=== PATIENT | female | born 1970 | race Caucasian/White ===

== ENCOUNTER 2019-04-12 15:37 | Inpatient (IN) | payer MEDICAID ==
[~2019-04-12] VITALS: Ht 162.6 cm; Wt 50.8 kg
[2019-04-12] MEDS ORDERED: HUM10VIA3 SQ (15:56)
[2019-04-12] MEDS ORDERED: KETOROLAC TROMETHAMINE 30 MG INJ IVP ONE (16:00)
[2019-04-12] MEDS ORDERED: ONDANSETRON 4 MG/2 ML VIAL IV ONE (16:00)
[2019-04-12] MEDS ORDERED: IV NORMAL SALINE 1000 ML BAG IV ONE ×2 (16:00→17:30)
[2019-04-12] MEDS ORDERED: KETOROLAC TROMETHAMINE 30 MG INJ ONE (16:12)
[2019-04-12] MEDS ORDERED: ONDANSETRON 4 MG/2 ML VIAL ONE (16:12)
[2019-04-12 16:15] LABS: HEMATOCRIT 35.6 % (31.2-41.9); HEMOGLOBIN 11.3 g/dL (10.9-14.3); LYMPHOCYTES # (AUTO) 1.2 K/uL (20.0-40.0); LYMPHOCYTES % (AUTO) 36.4 % (20.5-51.5); MEAN CORPUSCULAR HEMOGLOBIN 27.6 uug (24.7-32.8); MEAN CORPUSCULAR HGB CONC 32 g/dL (32.3-35.6); MEAN CORPUSCULAR VOLUME 87.3 fL (75.5-95.3); MONOCYTES # (AUTO) 0.5 K/uL (2.0-10.0); NEUTROPHILS # (AUTO) 1.6 K/uL (1.8-8.9); NEUTROPHILS % (AUTO) 46.6 % (38.5-71.5); PLATELET COUNT (AUTO) 219 K/uL (179-408); RED BLOOD CELL COUNT(AUTO) 4.08 MIL/uL (3.63-4.92); WHITE BLOOD COUNT (AUTO) 3.4 K/uL (3.8-11.8)
[2019-04-12 16:19] LABS: CREATININE 0.6 mg/dL (0.6-1.3); POTASSIUM 3.4 mmol/L (3.5-5.1)
[2019-04-12 16:25] LABS: BILIRUBIN,DIRECT 0.2 mg/dL (0.0-0.2); BILIRUBIN,TOTAL 0.4 mg/dL (0.2-1.0); TOTAL PROTEIN, SERUM 7.7 g/dL (6.4-8.2)
[2019-04-12 16:40] LABS: EOSINOPHILS % (MANUAL) 2 % (0-8); LYMPHOCYTES % (MANUAL) 36 % (20-40); MONOCYTES % (MANUAL) 13 % (2-10); NEUTROPHILS % (MANUAL) 49 % (42-75)
[2019-04-12] MEDS ORDERED: MORPHINE SULFATE 2 MG/1 ML DISP.SYRIN IV ONE (17:30)
[2019-04-12] MEDS ORDERED: FAMOTIDINE. 20 MG/2 ML VIAL IV ONE ×2 (17:30→17:31)
[2019-04-12] MEDS ORDERED: MORPHINE SULFATE 2 MG/1 ML DISP.SYRIN ONE (17:31)
[2019-04-12] MEDS ORDERED: IV NORMAL SALINE 250 ML IV ONE (20:22)
[2019-04-12] MEDS ORDERED: HYDROCORTISONE SOD SUCCINATE 250 MG/2 ML ML ONE (20:22)
[2019-04-12] MEDS ORDERED: SWABABLE VALVE TRANSFER SET EA MC ONE (20:22)
[2019-04-12] MEDS ORDERED: IOHEXOL 300MG/ML 100 ML INFUS..BTL ONE (20:23)
[2019-04-12] MEDS ORDERED: Z GUARD REMEDY PASTE 57 GM TUBE TOP PRN (21:00)
[2019-04-12] MEDS ORDERED: FAMOTIDINE. 20 MG/2 ML VIAL IV SCH (21:00)
[2019-04-12] MEDS ORDERED: ACETAMINOPHEN 325 MG TABLET PO PRN (21:00)
[2019-04-12] MEDS ORDERED: THIAMINE HCL INJ 100 MG in IV DEXTROSE 5% 50 ML IV ONE (21:00)
[2019-04-12] MEDS ORDERED: ONDANSETRON 4 MG/2 ML VIAL IV PRN (21:00)
[2019-04-12 21:15] VITALS: BP 192/97
[2019-04-12] MEDS: SUCRALFATE 1 G TABLET PO SCH (21:53)
[2019-04-12] MEDS: IV NS 1000 ML 1,000 ML IV PRN (21:53)
[2019-04-12] MEDS: LORAZEPAM 2 MG/1 ML VIAL IV PRN (21:54)
[2019-04-13] MEDS: LORAZEPAM 2 MG/1 ML VIAL IV PRN ×5 (02:11→23:00)
[2019-04-13] MEDS ORDERED: PIPERACILLIN/TAZOBACTAM/D5W 50 ML IV SCH ×2 (02:45→06:00)
[2019-04-13] MEDS: MORPHINE SULFATE 2 MG/1 ML DISP.SYRIN IV PRN ×2 (05:06→11:14)
[2019-04-13 05:13] VITALS: BP 133/83
[2019-04-13 06:28] LABS: BASOPHILS % (AUTO) 0.5 % (0.0-2.0); EOSINOPHILS % (AUTO) 0.5 % (0.0-7.0); HEMATOCRIT 32.7 % (31.2-41.9); HEMOGLOBIN 10.3 g/dL (10.9-14.3); LYMPHOCYTES # (AUTO) 0.3 K/uL (20.0-40.0); LYMPHOCYTES % (AUTO) 12.1 % (20.5-51.5); MEAN CORPUSCULAR HEMOGLOBIN 27.6 uug (24.7-32.8); MEAN CORPUSCULAR HGB CONC 32 g/dL (32.3-35.6); MEAN CORPUSCULAR VOLUME 87.6 fL (75.5-95.3); MONOCYTES # (AUTO) 0.1 K/uL (2.0-10.0); MONOCYTES % (AUTO) 2.6 % (0.0-11.0); NEUTROPHILS # (AUTO) 2.4 K/uL (1.8-8.9); NEUTROPHILS % (AUTO) 84.3 % (38.5-71.5); PLATELET COUNT (AUTO) 132 K/uL (179-408); RED BLOOD CELL COUNT(AUTO) 3.73 MIL/uL (3.63-4.92); WHITE BLOOD COUNT (AUTO) 2.9 K/uL (3.8-11.8)
[2019-04-13] MEDS: SUCRALFATE 1 G TABLET PO SCH ×4 (06:34→21:04)
[2019-04-13 06:41] LABS: IRON, SERUM 133 ug/dL (50-175)
[2019-04-13 06:46] LABS: ALANINE AMINOTRANSFERASE 99 U/L (14-59); ALKALINE PHOSPHATASE 311 U/L (50-136); ASPARTATE AMINOTRANSFERASE 177 U/L (15-37); BILIRUBIN,DIRECT 0.4 mg/dL (0.0-0.2); CARBON DIOXIDE 23 mmol/L (21-32); CHLORIDE 100 mmol/L (98-107); CREATININE 0.7 mg/dL (0.6-1.3); GLUCOSE 96 mg/dL (74-106); LIPASE 77 U/L (73-393); PHOSPHOROUS 1.7 mg/dL (2.5-4.9); POTASSIUM 3.2 mmol/L (3.5-5.1); TOTAL PROTEIN, SERUM 7.3 g/dL (6.4-8.2); UREA NITROGEN, BLOOD 7 mg/dL (7-18)
[2019-04-13 06:57] LABS: THYROID STIMULATING HORMONE 0.394 mIU/mL (0.358-3.740)
[2019-04-13 07:13] LABS: MAGNESIUM 0.9 mg/dL (1.8-2.4)
[2019-04-13 07:20] LABS: CHOLESTEROL 154 mg/dL (<200); FERRITIN 73 ng/mL (8-252); HDL CHOLESTEROL 58 mg/dL (40-60); TRIGLYCERIDES 63 MG/DL (30-150)
[2019-04-13] MEDS ORDERED: FAMOTIDINE. 20 MG/2 ML VIAL IV SCH ×2 (09:00→11:00)
[2019-04-13] MEDS: PIPERACILLIN/TAZOBACTAM/D5W 3.375 G in PREMIXED 1 EACH IV SCH ×2 (09:04→21:05)
[2019-04-13] MEDS: THIAMINE HCL 100 MG TABLET PO SCH (09:05)
[2019-04-13] MEDS: FOLIC ACID 1 MG TABLET PO SCH (09:05)
[2019-04-13] MEDS: MULTIVITAMINS,THERAPEUTIC TABLET PO SCH (09:05)
[2019-04-13] MEDS: HUM INSULIN NPH/REG INSULIN HM 70/30 1000 UNITS/10 ML VIAL SQ SCH ×2 (09:36→16:39)
[2019-04-13] MEDS: MAGNESIUM SULFATE/D5W 100 ML IV SCH ×4 (09:45→18:39)
[2019-04-13 11:06] VITALS: BP 113/72
[2019-04-13] MEDS: FAMOTIDINE. 20 MG/2 ML VIAL IV SCH ×2 (11:12→21:05)
[2019-04-13] MEDS ORDERED: POTASSIUM CHLORIDE 20 MEQ TAB.PRT.SR PO ONE (14:15)
[2019-04-13 15:35] VITALS: BP 124/76
[2019-04-13 17:51] LABS: *BILIRUBIN,URIN NEGATIVE (NEGATIVE); *BLOOD, URINE NEGATIVE (NEGATIVE); *CLARITY,URINE CLEAR (CLEAR); *COLOR,URINE YELLOW (YELLOW); *KETONES,URINE NEGATIVE (NEGATIVE); LEUKOCYTE ESTERASE ,URINE NEGATIVE (NEGATIVE); NITRITE, URINE NEGATIVE (NEGATIVE); UGLUCOSE TRACE (NEGATIVE)
[2019-04-13 18:14] LABS: SQUAMOUS EPITHELIAL CELL,UR MODERATE /HPF (NONE SEEN); WBC,URINE 0-3 /HPF (0-3)
[2019-04-13] MEDS ORDERED: NEUTRA PHOS PACKET PO ONE (18:15)
[2019-04-13 20:00] VITALS: BP 114/81
[2019-04-14] MEDS: IV NS 1000 ML 1,000 ML IV PRN (03:41)
[2019-04-14] MEDS: MORPHINE SULFATE 2 MG/1 ML DISP.SYRIN IV PRN ×2 (03:51→20:31)
[2019-04-14 04:20] VITALS: BP 96/63
[2019-04-14] MEDS: PIPERACILLIN/TAZOBACTAM/D5W 3.375 G in PREMIXED 1 EACH IV SCH ×3 (05:00→22:01)
[2019-04-14] MEDS: LORAZEPAM 2 MG/1 ML VIAL IV PRN ×4 (06:16→22:04)
[2019-04-14 06:31] LABS: BASOPHILS % (AUTO) 0.4 % (0.0-2.0); EOSINOPHILS # (AUTO) 0.1 K/uL (0.0-0.7); EOSINOPHILS % (AUTO) 1.6 % (0.0-7.0); HEMOGLOBIN 10.2 g/dL (10.9-14.3); LYMPHOCYTES # (AUTO) 0.9 K/uL (20.0-40.0); MEAN CORPUSCULAR HEMOGLOBIN 28.1 uug (24.7-32.8); MEAN CORPUSCULAR HGB CONC 32 g/dL (32.3-35.6); MEAN CORPUSCULAR VOLUME 87.6 fL (75.5-95.3); MONOCYTES # (AUTO) 0.6 K/uL (2.0-10.0); MONOCYTES % (AUTO) 12.9 % (0.0-11.0); NEUTROPHILS # (AUTO) 2.7 K/uL (1.8-8.9); NEUTROPHILS % (AUTO) 63.1 % (38.5-71.5); PLATELET COUNT (AUTO) 126 K/uL (179-408); RED BLOOD CELL COUNT(AUTO) 3.65 MIL/uL (3.63-4.92); WHITE BLOOD COUNT (AUTO) 4.3 K/uL (3.8-11.8)
[2019-04-14 06:43] LABS: BILIRUBIN,TOTAL 1.2 mg/dL (0.2-1.0); CREATININE 0.7 mg/dL (0.6-1.3); MAGNESIUM 1.9 mg/dL (1.8-2.4); PHOSPHOROUS 2.7 mg/dL (2.5-4.9); POTASSIUM 3.8 mmol/L (3.5-5.1); TOTAL PROTEIN, SERUM 6.3 g/dL (6.4-8.2)
[2019-04-14] MEDS: SUCRALFATE 1 G TABLET PO SCH ×4 (07:30→20:30)
[2019-04-14 09:20] VITALS: BP 107/70
[2019-04-14] MEDS: MULTIVITAMINS,THERAPEUTIC TABLET PO SCH (09:44)
[2019-04-14] MEDS: THIAMINE HCL 100 MG TABLET PO SCH (09:44)
[2019-04-14] MEDS: FOLIC ACID 1 MG TABLET PO SCH (09:44)
[2019-04-14 11:09] VITALS: BP 110/70
[2019-04-14] MEDS ORDERED: MIDAZOLAM HCL 2 MG/2 ML VIAL ONE (11:35)
[2019-04-14] MEDS: FAMOTIDINE. 20 MG/2 ML VIAL IV SCH ×2 (12:46→20:30)
[2019-04-14] MEDS: HUM INSULIN NPH/REG INSULIN HM 70/30 1000 UNITS/10 ML VIAL SQ SCH ×2 (12:50→16:09)
[2019-04-14] MEDS ORDERED: PROPOFOL 200 MG/20 ML BOTTLE IV ONE (13:02)
[2019-04-14] MEDS ORDERED: LIDOCAINE-MPF 2% 5 ML VIAL MC ONE (13:02)
[2019-04-14] MEDS ORDERED: IV NORMAL SALINE 1000 ML BAG IV ONE (13:02)
[2019-04-14 15:10] VITALS: BP 116/74
[2019-04-14 20:00] VITALS: BP 126/87
[2019-04-15] MEDS: LORAZEPAM 2 MG/1 ML VIAL IV PRN (04:28)
[2019-04-15 05:00] VITALS: BP 130/86
[2019-04-15] MEDS: PIPERACILLIN/TAZOBACTAM/D5W 3.375 G in PREMIXED 1 EACH IV SCH (05:45)
[2019-04-15 07:21] LABS: BILIRUBIN,TOTAL 0.5 mg/dL (0.2-1.0); CREATININE 0.6 mg/dL (0.6-1.3); PHOSPHOROUS 3.9 mg/dL (2.5-4.9)
[2019-04-15 07:25] LABS: MAGNESIUM 1.2 mg/dL (1.8-2.4)
[2019-04-15 07:30] LABS: BASOPHILS % (AUTO) 0.3 % (0.0-2.0); EOSINOPHILS # (AUTO) 0.1 K/uL (0.0-0.7); EOSINOPHILS % (AUTO) 3.2 % (0.0-7.0); HEMATOCRIT 32.6 % (31.2-41.9); HEMOGLOBIN 10.3 g/dL (10.9-14.3); LYMPHOCYTES # (AUTO) 1.2 K/uL (20.0-40.0); LYMPHOCYTES % (AUTO) 30.2 % (20.5-51.5); MEAN CORPUSCULAR HEMOGLOBIN 27.9 uug (24.7-32.8); MEAN CORPUSCULAR HGB CONC 32 g/dL (32.3-35.6); MEAN CORPUSCULAR VOLUME 88.6 fL (75.5-95.3); MONOCYTES # (AUTO) 0.4 K/uL (2.0-10.0); MONOCYTES % (AUTO) 9.7 % (0.0-11.0); NEUTROPHILS # (AUTO) 2.3 K/uL (1.8-8.9); NEUTROPHILS % (AUTO) 56.6 % (38.5-71.5); PLATELET COUNT (AUTO) 123 K/uL (179-408); RED BLOOD CELL COUNT(AUTO) 3.68 MIL/uL (3.63-4.92); WHITE BLOOD COUNT (AUTO) 4.1 K/uL (3.8-11.8)
[2019-04-15] MEDS: FOLIC ACID 1 MG TABLET PO SCH (08:37)
[2019-04-15] MEDS: MORPHINE SULFATE 2 MG/1 ML DISP.SYRIN IV PRN (08:37)
[2019-04-15] MEDS: MAGNESIUM SULFATE/D5W 100 ML IV SCH ×4 (08:37→11:48)
[2019-04-15] MEDS: MULTIVITAMINS,THERAPEUTIC TABLET PO SCH (08:37)
[2019-04-15] MEDS: SUCRALFATE 1 G TABLET PO SCH ×2 (08:37→11:49)
[2019-04-15] MEDS: HUM INSULIN NPH/REG INSULIN HM 70/30 1000 UNITS/10 ML VIAL SQ SCH (09:11)
[2019-04-15] MEDS: THIAMINE HCL 100 MG TABLET PO SCH (09:17)
[2019-04-15 11:06] VITALS: BP 115/83
[2019-04-15] MEDS: FAMOTIDINE. 20 MG/2 ML VIAL IV SCH (11:49)
[2019-04-15] MEDS ORDERED: HYDR50TA61 PO (13:07)
[2019-04-15] MEDS ORDERED: LEVO750T21 PO (13:07)
== END 2019-04-15 13:03 | disposition left against medical advice (07) ==
LOC: ER 15:37 → MEDSURG3 18:20
PROVIDERS: ADMIT Nurse Practitioner Acute Care; ATTEND Nurse Practitioner Acute Care
PROC: 0DB78ZX Excision of Stomach, Pylorus, Via Natural or Artificial Opening Endoscopic, Diagnostic (ICD-10-PCS; principal; 2019-04-12)
DX: K83.09 Other cholangitis (principal); K22.11 Ulcer of esophagus with bleeding; D61.818 Other pancytopenia; E87.2 Acidosis; G31.2 Degeneration of nervous system due to alcohol; E83.42 Hypomagnesemia; E11.9 Type 2 diabetes mellitus without complications; F10.229 Alcohol dependence with intoxication, unspecified; Y90.8 Blood alcohol level of 240 mg/100 ml or more; Z79.4 Long term (current) use of insulin; F10.239 Alcohol dependence with withdrawal, unspecified; E87.6 Hypokalemia; K44.9 Diaphragmatic hernia without obstruction or gangrene; K29.70 Gastritis, unspecified, without bleeding; K21.9 Gastro-esophageal reflux disease without esophagitis; R74.0 Nonspecific elevation of levels of transaminase and lactic acid dehydrogenase [LDH]; Z59.0 Homelessness; F17.210 Nicotine dependence, cigarettes, uncomplicated; Z90.49 Acquired absence of other specified parts of digestive tract
CPT/HCPCS: 36415; 71045; 74021; 74181; 83550; 83605; 83690; 83735; 84100; 84443; 85025; 85610; 85651; 85730; 86850; 86900; 86901; 87040; 88342; 93005; A4217; A4663; G0378; G0480; J1720; J1815; J1885; J2060; J2250; J2270; J2405; J2543; J3411; J3475; J3490; J7030; J7050; J7060; Q9967